=== PATIENT | male | born 1945 ===

== ENCOUNTER 2017-09-06 12:15 | Outpatient (CLI) | payer OTHER | END 2017-09-06 15:00 | disposition home or self-care (01) | LOC: RAD 12:15 | DX: K64.8 Other hemorrhoids (principal); K62.89 Other specified diseases of anus and rectum ==

== ENCOUNTER → 2017-09-06 12:52 | Outpatient (CLI) | payer OTHER | END | disposition home or self-care (01) | LOC: LAB 12:52 | DX: K64.8 Other hemorrhoids (principal); K62.89 Other specified diseases of anus and rectum ==

== ENCOUNTER 2017-09-12 06:26 | Day surgery (SDC) | payer OTHER ==
[2017-09-12] MEDS ORDERED: PERCOCET 5-3251 EACH PO (09:47)
[2017-09-12] MEDS ORDERED: RECTICARE30 GM TOP (09:48)
== END 2017-09-12 12:30 | disposition home or self-care (01) ==
LOC: CIR.AMB 06:26
DX: K64.8 Other hemorrhoids (principal)